=== PATIENT | male | born 2000 | race Two or more races ===

== ENCOUNTER 2024-11-13 20:34 | Emergency (ER) | payer SELFPAY ==
[2024-11-13 20:40] VITALS: BP 121/74; PULSE 86; RESP 18; TEMP 97.7; BMI 19.0
[2024-11-13] MEDS ORDERED: ACETAMINOPHEN 500 MG TABLET (FP) ONE (21:30)
[2024-11-13] MEDS ORDERED: IBUPROFEN 600 MG TABLET (FP) PO ONE (21:30)
[2024-11-13] MEDS: ACETAMINOPHEN 500 MG TABLET (FP) PO ONE (21:32)
[2024-11-13] MEDS: IBUPROFEN 600 MG TABLET (FP) PO ONE (21:32)
== END 2024-11-13 21:32 | disposition home or self-care (01) ==
LOC: JER 20:34
DX: S63.633A Sprain of interphalangeal joint of left middle finger, initial encounter (principal); X58.XXXA Exposure to other specified factors, initial encounter
CPT/HCPCS: 73130-TC-LT-FY; 99283-25